=== PATIENT | male | born 1995 | race Two or more races ===

== ENCOUNTER 2017-02-27 22:50 | Emergency (ER) | payer OTHER ==
[~2017-02-27] VITALS: Ht 167.6 cm; Wt 63.0 kg
[~2017-02-27 22:50] MED LIST: NO HOME MEDS
[2017-02-28 01:28] VITALS: BP 133/89
== END 2017-02-28 01:30 | disposition home or self-care (01) ==
LOC: EME 22:50
DX: S09.90XA Unspecified injury of head, initial encounter (principal); V49.40XA Driver injured in collision with unspecified motor vehicles in traffic accident, initial encounter
CPT/HCPCS: 70450; 99281; 99283